=== PATIENT | male | born 1970 ===

== ENCOUNTER 2018-03-09 12:58 | Emergency (ER) | payer SELFPAY ==
[2018-03-09 13:16] VITALS: BP 167/97; PULSE 98; RESP 18; TEMP 98.3; O2SAT 99
--- NOTE | 2018-03-09 13:30 | ED PDOC ---
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 Patient reports he was told this was caused by an ingrown hair and he had treated 3 times. Denies any fever or redness. He states the bump has watery blood. Denies taking any medications or any history of diabetes or heart conditions. PMD: Past Medical History Reviewed: Historical Data, Nursing Documentation, Vital Signs Vital Signs: Last Vital Signs Temp 98.3 F 03/09/18 13:13 Pulse 98 H 03/09/18 13:13 Resp 18 03/09/18 13:13 BP 167/97 H 03/09/18 13:13 Pulse Ox 99 03/09/18 13:13 - Medical History PMH: No Chronic Diseases - Surgical History Surgical History: No Surg Hx - Family History Family History: States: Unknown Family Hx - Home Medications Home Medications: Ambulatory Orders Medication Instructions Recorded Cephalexin [cephalexin] 1 cap PO QID #40 cap 03/09/18 - Allergies Allergies/Adverse Reactions: Allergies Allergy/AdvReac Type Severity Reaction Status Date / Time No Known Allergies Allergy Verified 03/09/18 13:13 Review of Systems ROS Statement: Except As Marked, All Systems Reviewed And Found Negative Constitutional: Negative for: Fever Skin: Positive for: Other (Abscess to the left thigh) Physical Exam - Reviewed Nursing Documentation Reviewed: Yes Vital Signs Reviewed: Yes - Physical Exam Appears: Positive for: Non-toxic, No Acute Distress Head Exam: Positive for: ATRAUMATIC, NORMOCEPHALIC Skin: Positive for: Normal Color, Warm, Dry Eye Exam: Positive for: Normal appearance Neck: Positive for: Normal, Painless ROM Cardiovascular/Chest: Positive for: Regular Rate, Rhythm Respiratory: Positive for: Normal Breath Sounds. Negative for: Wheezing, Respiratory Distress Extremity: Positive for: Other (Left thigh abscess, 1cm in diameter, fluctuant with no areas of induration; abscess ripe for drainage) Neurologic/Psych: Positive for: Alert, Oriented. Negative for: Motor/Sensory Deficits - ECG O2 Sat by Pulse Oximetry: 99 (RA) Pulse Ox Interpretation: Normal Medical Decision Making Medical Decision Making: Initial Impression: Abscess Initial Plan: --Abscess drainage Scribe Attestation: Documented by Tadeo Casanova acting as a scribe for Kendall OLMEDO. Provider Scribe Attestation: All medical record entries made by the Scribe were at my direction and personally dictated by me. I have reviewed the chart and agree that the record accurately reflects my personal performance of the history, physical exam, me dical decision making, and the department course for this patient. I have also personally directed, reviewed, and agree with the discharge instructions and disposition. Disposition - Clinical Impression Clinical Impression: Abscess - Patient ED Disposition Is Patient to be Admitted: No Doctor Will See Patient In The: Office Counseled Patient/Family Regarding: Diagnosis, Need For Followup, Rx Given - Disposition Referrals: [facility] [Outside] Disposition: Routine/Home Disposition Time: 14:06 Condition: STABLE Prescriptions: Cephalexin [cephalexin] 1 cap PO QID #40 cap Instructions: Skin Abscess, Abscess Incision and Drainage (DC) Forms: Optifreeze (Vietnamese), Optifreeze (Anguillan) Print Language: INDONESIAN Procedures - Incision and Drainage Site: Left thigh Blade Size: 18 I & D Procedure: betadine prep, sterile drapes applied, sterile dressing applied, no gauze wick placed
== END 2018-03-09 14:32 | disposition home or self-care (01) ==
LOC: H.ER 12:58
DX: L02.416 Cutaneous abscess of left lower limb (principal)